=== PATIENT | male | born 1965 | race Caucasian/White ===

== ENCOUNTER 2023-02-22 17:05 | Inpatient (IN) ==
[2023-02-22 17:40] LABS: ABS Lymphocytes 0.4 10^3/ul (1.0-4.8); ABS Monocytes 1.1 10^3/ul (0-0.8); ABS Neutrophils 9.5 10^3/ul (1.5-7.7); Eosinophil % 0.3 %; Hematocrit 22 % (42-52); Hemoglobin 7.1 g/dL (14.0-18.0); Lymphocyte % 3.9 %; Mean Corpuscular Hemoglobin 30 pg (27-31); Mean Corpuscular Hgb Conc 33 g/dL (31-36); Mean Corpuscular Volume 91 fL (80-94); Mean Platelet Volume 7.1 fL (7.4-10.4); Platelet Count 300 10^3/uL (150-450); Red Blood Count 2.37 10^6 /uL (4.18-5.48); Red Cell Distribution Width 18 % (10-15); White Blood Count 11.1 10^3/uL (3.5-10.8)
[2023-02-22 17:49] LABS: Activated Partial Thrombo Time 31.5 seconds (26.0-38.0); INR 1.36 (0.88-1.18)
[2023-02-22 18:12] LABS: Albumin 2.6 g/dL (3.2-5.2); Albumin/Globulin Ratio 0.6 (1-3); C Reactive Protein 167.66 mg/L (<8.01); Calcium 7.4 mg/dL (8.6-10.3); Creatinine, Serum 0.59 mg/dL (0.67-1.17); Globulin 4.2 g/dL (2-4); Potassium 4.3 mmol/L (3.5-5.0); Total Bilirubin 0.6 mg/dL (0.2-1.0); Total Protein 6.8 g/dL (6.4-8.9); eGFR CKD-EPI 113.9 (>60)
[2023-02-22] MEDS ORDERED: NS 0.9% 1000 ml BAG 1,000 ML IV ONE (18:50)
[2023-02-22] MEDS ORDERED: cefTRIAXone 2 gm/50 mL D5W 2 GM/50 ML BAG IV ONE (18:51)
[2023-02-22] MEDS ORDERED: Azithromycin 500 mg/250 ml NS 500 MG/250 ML BAG IVPB ONE (18:51)
[2023-02-22] MEDS ORDERED: Iohexol 350 (CONTRAST) 500 ML MDV IV ONE (19:07)
[2023-02-22 19:31] LABS: High Sensitivity Troponin 1 Hr 5 pg/mL (<20)
[2023-02-22] MEDS ORDERED: Acetaminophen IV 1 GM/100ML 1,000 MG/100 ML BAG IV PRN (22:26)
[2023-02-22 22:34] LABS: Urine Appearance Clear; Urine Bilirubin Negative (Negative); Urine Blood Negative (Negative); Urine Color Yellow; Urine Glucose Negative (Negative); Urine Ketones Negative (Negative); Urine Nitrite Negative (Negative); Urine Protein Negative (Negative); Urine Specific Gravity 1.031 (1.002-1.030); Urine Urobilinogen Negative (Negative)
[2023-02-22] MEDS ORDERED: NS 0.9% 500 ml BAG 500 ML IV ONE (22:38)
[2023-02-22] MEDS ORDERED: NS 0.9% 500 ml BAG 500 ML IV SCH (23:00)
[2023-02-22 23:04] LABS: Magnesium 1.8 mg/dL (1.9-2.7)
[2023-02-22] MEDS ORDERED: Enoxaparin 40 MG/0.4 ML SYR SUBCUT SCH (23:45)
[2023-02-22] MEDS ORDERED: Magnesium Sulfate 2 gm BAG 2 GM/50 ML BAG IVPB ONE (23:50)
[2023-02-23] MEDS ORDERED: Vancomycin 1,250 MG in NS 0.9% 250 ml 250 ML IVPB ONE (00:18)
[2023-02-23] MEDS ORDERED: Vancomycin per Pharmacy 1 EA NOTE FOLLOW UP PRN (00:41)
[2023-02-23] MEDS ORDERED: Cefepime 2 GM in Dextrose 2 GM/50 ML BAG IV SCH (01:00)
[2023-02-23] MEDS ORDERED: Levalbuterol 0.63MG/3ML NEB UNIT OF USE INH SCH (01:00)
[2023-02-23 05:17] LABS: ABS Eosinophils 0.1 10^3/ul (0-0.6); ABS Lymphocytes 0.4 10^3/ul (1.0-4.8); ABS Neutrophils 6.8 10^3/ul (1.5-7.7); Eosinophil % 0.7 %; Hematocrit 18 % (42-52); Lymphocyte % 5.1 %; Mean Corpuscular Hemoglobin 30 pg (27-31); Mean Corpuscular Hgb Conc 33 g/dL (31-36); Mean Corpuscular Volume 91 fL (80-94); Mean Platelet Volume 6.9 fL (7.4-10.4); Platelet Count 252 10^3/uL (150-450); Red Blood Count 2.01 10^6 /uL (4.18-5.48); Red Cell Distribution Width 18 % (10-15); White Blood Count 8.3 10^3/uL (3.5-10.8)
[2023-02-23 05:53] LABS: Anion Gap 5 mmol/L (2-11); Blood Urea Nitrogen 10 mg/dL (6-24); CO2 Carbon Dioxide 23 mmol/L (22-32); Calcium 7.5 mg/dL (8.6-10.3); Chloride 106 mmol/L (101-111); Creatinine, Serum 0.59 mg/dL (0.67-1.17); Glucose 86 mg/dL (70-100); Potassium 4.1 mmol/L (3.5-5.0); Sodium 134 mmol/L (135-145); eGFR CKD-EPI 113.9 (>60)
[2023-02-23] MEDS ORDERED: Enoxaparin 40 MG/0.4 ML SYR SUBCUT SCH (09:00)
[2023-02-23 09:41] LABS: ABS Basophils 0.1 10^3/ul (0-0.2); ABS Eosinophils 0.1 10^3/ul (0-0.6); ABS Lymphocytes 0.4 10^3/ul (1.0-4.8); ABS Monocytes 0.8 10^3/ul (0-0.8); ABS Neutrophils 6.4 10^3/ul (1.5-7.7); Hematocrit 19 % (42-52); Hemoglobin 6.4 g/dL (14.0-18.0); Lymphocyte % 5.3 %; Mean Corpuscular Hemoglobin 30 pg (27-31); Mean Corpuscular Hgb Conc 33 g/dL (31-36); Mean Corpuscular Volume 91 fL (80-94); Mean Platelet Volume 7.1 fL (7.4-10.4); Platelet Count 267 10^3/uL (150-450); Red Blood Count 2.09 10^6 /uL (4.18-5.48); Red Cell Distribution Width 18 % (10-15); White Blood Count 7.7 10^3/uL (3.5-10.8)
[2023-02-23] MEDS ORDERED: Vancomycin 1,250 MG in NS 0.9% 250 ml 250 ML IVPB SCH (10:00)
[2023-02-23 12:31] LABS: % Iron Saturation 14 % (15-55); .Transferrin 105 mg/dL (203-362); Iron < 20 ug/dL (50-212); Total Iron Binding Capacity 147 mcg/dL (250-450); Unsaturated Iron Binding 127 ug/dL
[2023-02-23 12:51] LABS: Corrected Retic Count 0.5 % (0.5-1.5); Hematocrit for Retic CNT 19 % (42-52); RBC Retic Count 2.07 10^6/uL (4.18-5.48)
[2023-02-23 12:54] LABS: Ferritin > 1500.0 ng/mL (24-336)
[2023-02-23 12:56] LABS: Folate > 20.00 ng/mL (5.90-24.80)
[2023-02-23 12:57] LABS: Vitamin B12 > 1450 pg/mL (180-914)
[2023-02-23] MEDS: Saliva Substitute (NF) 1 SPRAY BTL MT SCH ×2 (14:24→20:31)
[2023-02-23 19:49] LABS: HIV 4th Generation Nonreactive (Nonreactive)
[2023-02-23] MEDS ORDERED: Azithromycin 500 mg/250 ml NS 500 MG/250 ML BAG IVPB SCH (21:00)
[2023-02-23] MEDS ORDERED: cefTRIAXone 1 gm/50 mL D5W 1 GM/50 ML BAG IV SCH (21:00)
[2023-02-24 05:09] LABS: ABS Eosinophils 0.1 10^3/ul (0-0.6); ABS Lymphocytes 0.5 10^3/ul (1.0-4.8); ABS Monocytes 0.9 10^3/ul (0-0.8); ABS Neutrophils 8.7 10^3/ul (1.5-7.7); Eosinophil % 1.1 %; Hematocrit 23 % (42-52); Hemoglobin 7.4 g/dL (14.0-18.0); Lymphocyte % 4.9 %; Mean Corpuscular Hemoglobin 29 pg (27-31); Mean Corpuscular Hgb Conc 32 g/dL (31-36); Mean Corpuscular Volume 89 fL (80-94); Platelet Count 285 10^3/uL (150-450); Red Cell Distribution Width 17 % (10-15); White Blood Count 10.2 10^3/uL (3.5-10.8)
[2023-02-24 06:01] LABS: Calcium 7.7 mg/dL (8.6-10.3); Magnesium 1.8 mg/dL (1.9-2.7); Potassium 4.1 mmol/L (3.5-5.0)
[2023-02-24 06:07] LABS: Creatinine, Serum 0.6 mg/dL (0.67-1.17); eGFR CKD-EPI 113.3 (>60)
[2023-02-24] MEDS ORDERED: Magnesium Sulfate 2 gm BAG 2 GM/50 ML BAG IVPB ONE (07:26)
[2023-02-24] MEDS: Saliva Substitute (NF) 1 SPRAY BTL MT SCH (08:43)
[2023-02-24] MEDS ORDERED: Vancomycin Trough Check NOTE FOLLOW UP ONE (09:30)
[2023-02-24 09:47] VITALS: BP 95/62
== END 2023-02-24 14:05 | disposition home or self-care (01) | DRG 139 ==
LOC: ED 17:05 → MED 17:05 → SUATTDRO 02-23 01:00 → MED 02-23 02:13
PROVIDERS: ADMIT Internal Medicine; ATTEND Internal Medicine